=== PATIENT | male | born 1965 | race Native Hawaiian/Other Pacific Islander ===

== ENCOUNTER 2016-12-24 12:30 | Outpatient (CLI) | payer OTHER | END 2016-12-24 14:00 | disposition home or self-care (01) | LOC: CT 12:30 | DX: J44.9 Chronic obstructive pulmonary disease, unspecified (principal) ==

== ENCOUNTER 2017-01-15 09:09 | Outpatient (CLI) | payer OTHER | END 2017-01-15 19:27 | disposition home or self-care (01) | LOC: US 09:09 | DX: R10.11 Right upper quadrant pain (principal) ==

== ENCOUNTER 2019-04-28 13:35 | Outpatient (CLI) | payer BC | END 2019-04-28 19:24 | disposition home or self-care (01) | LOC: RAD 13:35 | DX: J20.8 Acute bronchitis due to other specified organisms (principal) ==

== ENCOUNTER 2019-07-03 08:13 | Outpatient (CLI) | payer BC | END 2019-07-03 19:18 | disposition home or self-care (01) | LOC: CT 08:13 | DX: F17.200 Nicotine dependence, unspecified, uncomplicated (principal) | CPT/HCPCS: G0297-TC ==

== ENCOUNTER 2019-11-10 08:03 | Outpatient (CLI) | payer BC | END 2019-11-10 23:30 | disposition home or self-care (01) | LOC: CT 08:03 | DX: R14.0 Abdominal distension (gaseous) (principal); R10.9 Unspecified abdominal pain | CPT/HCPCS: 36415; 82565; 84520; Q9963 ==

== ENCOUNTER 2019-12-22 09:20 | Outpatient (CLI) | payer BC | END 2019-12-22 19:00 | disposition home or self-care (01) | LOC: LABW 09:20 | PROVIDERS: Internal Medicine Cardiovascular Disease | DX: E78.5 Hyperlipidemia, unspecified (principal) | CPT/HCPCS: 36415; 80061; 80076 ==

== ENCOUNTER 2020-06-27 11:50 | Observation (INO) | payer BC ==
[~2020-06-27] VITALS: Ht 175.3 cm; Wt 101.3 kg
[2020-06-27 13:39] LABS: PLATELET COUNT 216 K/uL (142-355)
[2020-06-27 13:41] LABS: POTASSIUM 4.1 mmol/L (3.6-5.2); SODIUM 135 mmol/L (136-145)
[2020-06-27] MEDS ORDERED: LEVOCETIRIZINE D5 MG PO (17:50)
[2020-06-27] MEDS ORDERED: FURO20TA67 PO (17:50)
[2020-06-27] MEDS ORDERED: CARV12.5 PO (17:51)
[2020-06-27] MEDS ORDERED: CLOP75TA2 PO (17:58)
[2020-06-27] MEDS ORDERED: LIPITOR80 MG PO (17:58)
[2020-06-27] MEDS ORDERED: ASA LOW DOSE81 MG PO (18:02)
[2020-06-27] MEDS ORDERED: EZETIMIBE10 MG PO (18:03)
[2020-06-27] MEDS ORDERED: LISI20TA11 PO (18:03)
[2020-06-27 18:54] VITALS: BP 133/82; TEMP 98.5; Ht 175.3 cm; Wt 101.3 kg
[2020-06-27 20:00] VITALS: BP 125/83; TEMP 98.4
[2020-06-28] VITALS (7 sets, daily range): BP systolic 100–135; BP diastolic 56–77; TEMP 97.8–98.4
[2020-06-28 05:39] LABS: PLATELET COUNT 174 K/uL (142-355)
[2020-06-28 06:07] LABS: POTASSIUM 4.8 mmol/L (3.6-5.2)
[2020-06-29 04:00] VITALS: BP 101/51; TEMP 97.9
[2020-06-29 05:11] LABS: PLATELET COUNT 194 K/uL (142-355)
[2020-06-29 05:33] LABS: POTASSIUM 4.6 mmol/L (3.6-5.2)
[2020-06-29 08:00] VITALS: BP 109/67; TEMP 98.2
[2020-06-29 12:00] VITALS: BP 134/73; TEMP 97.7
[2020-06-29 16:00] VITALS: BP 120/86; TEMP 98.1
== END 2020-06-29 17:26 | disposition home or self-care (01) ==
LOC: MED/SURG 11:50
PROVIDERS: ADMIT Family Medicine; ATTEND Family Medicine
DX: U07.1 COVID-19 (principal); J44.0 Chronic obstructive pulmonary disease with (acute) lower respiratory infection; J44.1 Chronic obstructive pulmonary disease with (acute) exacerbation; J18.8 Other pneumonia, unspecified organism; R11.2 Nausea with vomiting, unspecified; R19.7 Diarrhea, unspecified; E89.0 Postprocedural hypothyroidism; I25.10 Atherosclerotic heart disease of native coronary artery without angina pectoris; R09.02 Hypoxemia; E78.49 Other hyperlipidemia; E46 Unspecified protein-calorie malnutrition; J38.1 Polyp of vocal cord and larynx
CPT/HCPCS: 36415; 80053; 81000; 82550; 82728; 83735; 83880; 84100; 84484; 85027; 85379; 86140; 87040; 87635; 93005; 94640; 94664; 94667; 94760; 96360; 96361; 96365; 96366; 96367; 96374; 96375; 99220; G0378; G0379; J0456; J0696; J1100; J1650; J2405; J2920; U0003

== ENCOUNTER 2020-09-04 07:46 | Outpatient (CLI) | payer BC ==
[~2020-09-04 07:46] MED LIST: ASA LOW DOSE81 MG PO; CARV12.5 PO; CLOP75TA2 PO; EZETIMIBE10 MG PO; FURO20TA67 PO; LEVOCETIRIZINE D5 MG PO; LIPITOR80 MG PO; LISI20TA11 PO
== END 2020-09-04 21:47 | disposition home or self-care (01) ==
LOC: US 07:46
PROVIDERS: ATTEND Nurse Practitioner Family
DX: N28.1 Cyst of kidney, acquired (principal); I73.9 Peripheral vascular disease, unspecified

== ENCOUNTER 2021-05-31 12:11 | Outpatient (CLI) | payer BC | END 2021-05-31 19:34 | disposition home or self-care (01) | LOC: LABW 12:11 | PROVIDERS: ATTEND Internal Medicine Cardiovascular Disease | DX: E78.5 Hyperlipidemia, unspecified (principal); Z09 Encounter for follow-up examination after completed treatment for conditions other than malignant neoplasm | CPT/HCPCS: 36415; 80061; 80076 ==

== ENCOUNTER 2021-08-04 13:34 | Outpatient (CLI) | payer BC ==
[2021-08-04 14:22] LABS: PLATELET COUNT 263 K/uL (142-355)
== END 2021-08-04 18:59 | disposition home or self-care (01) ==
LOC: RAD 13:34
PROVIDERS: ATTEND Nurse Practitioner Primary Care
DX: J44.1 Chronic obstructive pulmonary disease with (acute) exacerbation (principal)
CPT/HCPCS: 36415; 85027

== ENCOUNTER 2021-08-08 12:59 | Outpatient (CLI) | payer BC | END 2021-08-08 19:03 | disposition home or self-care (01) | LOC: CT 12:59 | PROVIDERS: ATTEND Physician Assistant | DX: R14.0 Abdominal distension (gaseous) (principal); R10.9 Unspecified abdominal pain | CPT/HCPCS: 36415; 82565; 84520; Q9963 ==

== ENCOUNTER 2022-07-06 13:32 | Outpatient (CLI) | payer BC ==
[2022-07-06 13:55] LABS: PLATELET COUNT 238 K/uL (142-355)
[2022-07-06 14:13] LABS: POTASSIUM 4.1 mmol/L (3.6-5.2)
== END 2022-07-06 20:09 | disposition home or self-care (01) ==
LOC: RAD 13:32
PROVIDERS: ATTEND Nurse Practitioner Family
DX: J44.1 Chronic obstructive pulmonary disease with (acute) exacerbation (principal); R73.9 Hyperglycemia, unspecified
CPT/HCPCS: 36415; 80053; 83036; 85027

== ENCOUNTER 2022-08-14 12:43 | Outpatient (CLI) | payer BC | END 2022-08-14 19:54 | disposition home or self-care (01) | LOC: CT 12:43 → LABW 12:43 → CT 19:54 | PROVIDERS: ATTEND Nurse Practitioner Family | DX: F17.210 Nicotine dependence, cigarettes, uncomplicated (principal); E78.49 Other hyperlipidemia | CPT/HCPCS: 36415; 80061; 80076 ==